=== PATIENT | female | born 1995 | race Caucasian/White ===

== ENCOUNTER 2017-06-18 14:50 | Emergency (ER) | payer SELFPAY ==
[~2017-06-18] VITALS: Ht 154.9 cm; Wt 68.2 kg
[2017-06-18 15:07] VITALS: BP 122/70; TEMP 98.5
[2017-06-18] MEDS ORDERED: NORCO 325 MG-51 TAB PO (15:31)
[2017-06-18 15:53] VITALS: PULSE 79
== END 2017-06-18 15:54 | disposition home or self-care (01) ==
LOC: COL.ER 14:50
DX: T23.272A Burn of second degree of left wrist, initial encounter (principal); T31.0 Burns involving less than 10% of body surface; X12.XXXA Contact with other hot fluids, initial encounter; Y92.59 Other trade areas as the place of occurrence of the external cause; Y99.0 Civilian activity done for income or pay